=== PATIENT | female | born 1975 | race Caucasian/White ===

== ENCOUNTER 2022-01-31 11:00 | Inpatient (IN) | payer OTHER ==
[2022-01-27 18:34] VITALS: BMI 26.9
[2022-02-13] MEDS ORDERED: GENTAMICIN SO4 80 MG/2 ML VIAL ONE (07:11)
[2022-02-13] MEDS ORDERED: LIDOCAINE HCL 1% EPINEPHRINE 1:200,000 30 ML VIAL (PF) ONE (07:12)
[2022-02-13] MEDS ORDERED: THROMBIN (BOVINE) 5,000 UNIT VIAL TP ONE ×4 (07:12→10:00)
[2022-02-13] MEDS ORDERED: BACITRACIN 15 GM TUBE TOPICAL OINTMENT ONE (07:12)
[2022-02-13] MEDS ORDERED: MIDAZOLAM HCL 2 MG/2 ML SINGLE DOSE VIAL ONE (07:16)
[2022-02-13] MEDS ORDERED: KETAMINE HCL 500 MG/10 ML VIAL ONE (07:16)
[2022-02-13] MEDS ORDERED: PROPOFOL 40 ML ONE (07:17)
[2022-02-13] MEDS ORDERED: ROCURONIUM BROMIDE 50 MG/5 ML SYRINGE ONE ×2 (07:18→11:19)
[2022-02-13] MEDS ORDERED: BUPIVACAINE HCL/PF 0.5% (5MG/ML) 10 ML VIAL ONE (07:21)
[2022-02-13] MEDS ORDERED: DEXMEDETOMIDINE HCL 200 MCG/2 ML IVPB ONE (07:34)
[2022-02-13] MEDS ORDERED: ACETAMINOPHEN INJECTION 100 ML IVPB ONE (07:34)
[2022-02-13] MEDS ORDERED: GENTAMICIN SO4 80 MG/2 ML VIAL IVPB ONE ×3 (08:13→10:20)
[2022-02-13] MEDS ORDERED: HYDROGEN PEROXIDE 473 ML PO ONE ×3 (08:16→10:20)
[2022-02-13] MEDS ORDERED: VANCOMYCIN 1,000 MG VIAL (RESTRICTED TO ID ONLY) ONE (08:24)
[2022-02-13] MEDS ORDERED: ALBUMIN HUMAN 5% 250 ML IV SOLUTION IV ONE (08:30)
[2022-02-13] MEDS ORDERED: ALBUMIN HUMAN 5% 250 ML IV SOLUTION IV SCH (08:30)
[2022-02-13] MEDS ORDERED: VANCOMYCIN 1 GM in D5W (PRE-DOCKED) 1,000 MG/250 ML IVPB ONE ×2 (08:45→12:13)
[2022-02-13] MEDS ORDERED: ceFAZolin SODIUM 1 GM VIAL IVPB ONE ×2 (08:45→11:44)
[2022-02-13] MEDS ORDERED: BUPIVACAINE LIPOSOME/PF (EXPAREL) 266 MG/20 ML VIAL ONE (09:36)
[2022-02-13] MEDS ORDERED: BUPIVACAINE HCL/PF 0.5% (5MG/ML) 10 ML VIAL IJ ONE ×3 (09:48→12:15)
[2022-02-13] MEDS ORDERED: BUPIVACAINE LIPOSOME/PF (EXPAREL) 266 MG/20 ML VIAL NR ONE ×3 (09:48→12:15)
[2022-02-13] MEDS ORDERED: ONDANSETRON 4 MG/2 ML VIAL IVPUSH PRN ×2 (13:01→13:35)
[2022-02-13] MEDS ORDERED: diphenhydrAMINE HCL 25 MG CAPSULE (FP) PO PRN (13:01)
[2022-02-13] MEDS ORDERED: HEPARIN NA (PORCINE) 5,000 UNITS/ML 1ML VIAL SQ SCH (13:15)
[2022-02-13] MEDS: LACTATED RINGERS SOLUTION 1,000 ML/1,000 ML INFUS.BAG IV SCH (13:30)
[2022-02-13] MEDS: DOCUSATE SODIUM 100 MG CAPSULE (FP) PO SCH ×2 (14:03→22:37)
[2022-02-13] MEDS ORDERED: ACETAMINOPHEN 1000 MG/100 ML BAG IVPB SCH (16:30)
[2022-02-13] MEDS ORDERED: CEFAZOLIN 1 GM/D5W 1 GM/50 ML BAG IVPB SCH (17:00)
[2022-02-13] MEDS ORDERED: ceFAZolin SODIUM 1 GM VIAL ONE (17:48)
[2022-02-13] MEDS: ACETAMINOPHEN 1000 MG/100 ML BAG IVPB SCH (18:00)
[2022-02-13] MEDS: CEFAZOLIN 1 GM in DEXTROSE 5%-WATER - 50 ML IVPB SCH ×2 (18:28)
[2022-02-13] MEDS: oxyCODONE HCL 5 MG TABLET PO PRN (22:37)
[2022-02-13] MEDS: HEPARIN NA (PORCINE) 5,000 UNITS/ML 1ML VIAL SQ SCH (22:37)
[2022-02-14] MEDS: ACETAMINOPHEN 1000 MG/100 ML BAG IVPB SCH ×3 (04:14→19:14)
[2022-02-14] MEDS: oxyCODONE HCL 5 MG TABLET PO PRN ×4 (04:15→22:22)
[2022-02-14] MEDS: HEPARIN NA (PORCINE) 5,000 UNITS/ML 1ML VIAL SQ SCH ×3 (06:53→22:24)
[2022-02-14] MEDS: DOCUSATE SODIUM 100 MG CAPSULE (FP) PO SCH ×3 (06:53→22:24)
[2022-02-14 08:23] LABS: HEMATOCRIT 21.2 % (32.4-45.2); MCH 24.7 pg (25.7-33.7); MCHC 31.9 g/dl (32.0-36.0); MEAN CELL VOLUME 77.5 fl (80-96); MEAN PLT VOLUME 8.8 fl (7.5-11.1); PLATELET COUNT 233 10^3/uL (134-434); RBC 2.74 M/mm3 (3.60-5.2); RDW 16.2 % (11.6-15.6); WHITE BLOOD COUNT 6.2 K/mm3 (4.0-10.0)
[2022-02-14 08:42] LABS: HEMOGLOBIN 6.8 GM/dL (10.7-15.3)
[2022-02-14 09:02] LABS: CALCIUM 7.8 mg/dL (8.5-10.1)
[2022-02-14 09:06] LABS: CREATININE 0.6 mg/dL (0.55-1.3)
[2022-02-14] MEDS: ESCITALOPRAM OXALATE 10 MG TABLET PO SCH (09:49)
[2022-02-14] MEDS: FOLIC ACID 1 MG TABLET (FP) PO SCH (09:49)
[2022-02-14] MEDS: CHOLECALCIFEROL (VIT D3) 400 UNIT (10 MCG) TABLET PO SCH (09:49)
[2022-02-14] MEDS ORDERED: FERROUS SO4 325 MG TABLET (FP) PO SCH (10:00)
[2022-02-14] MEDS: CEFAZOLIN 1 GM in DEXTROSE 5%-WATER - 50 ML IVPB SCH (14:52)
[2022-02-14] MEDS: LACTATED RINGERS SOLUTION 1,000 ML/1,000 ML INFUS.BAG IV SCH (14:52)
[2022-02-14 17:02] LABS: HEMATOCRIT 22.7 % (32.4-45.2); HEMOGLOBIN 7.2 GM/dL (10.7-15.3); MCH 24.8 pg (25.7-33.7); MCHC 31.6 g/dl (32.0-36.0); MEAN CELL VOLUME 78.3 fl (80-96); MEAN PLT VOLUME 8.9 fl (7.5-11.1); PLATELET COUNT 241 10^3/uL (134-434); RDW 16.1 % (11.6-15.6); WHITE BLOOD COUNT 6.9 K/mm3 (4.0-10.0)
[2022-02-15] MEDS: oxyCODONE HCL 5 MG TABLET PO PRN ×4 (05:00→21:30)
[2022-02-15] MEDS: HEPARIN NA (PORCINE) 5,000 UNITS/ML 1ML VIAL SQ SCH ×3 (06:32→21:28)
[2022-02-15] MEDS: DOCUSATE SODIUM 100 MG CAPSULE (FP) PO SCH ×3 (06:32→21:28)
[2022-02-15 08:34] LABS: HEMATOCRIT 21.8 % (32.4-45.2); HEMOGLOBIN 7.3 GM/dL (10.7-15.3); MCH 25.8 pg (25.7-33.7); MCHC 33.5 g/dl (32.0-36.0); MEAN CELL VOLUME 77.2 fl (80-96); MEAN PLT VOLUME 9.1 fl (7.5-11.1); PLATELET COUNT 242 10^3/uL (134-434); RBC 2.83 M/mm3 (3.60-5.2); RDW 16.1 % (11.6-15.6); WHITE BLOOD COUNT 7.6 K/mm3 (4.0-10.0)
[2022-02-15] MEDS: CHOLECALCIFEROL (VIT D3) 400 UNIT (10 MCG) TABLET PO SCH (11:16)
[2022-02-15] MEDS: ESCITALOPRAM OXALATE 10 MG TABLET PO SCH (11:16)
[2022-02-15] MEDS: FOLIC ACID 1 MG TABLET (FP) PO SCH (11:16)
[2022-02-15] MEDS: FERROUS SO4 325 MG TABLET (FP) PO SCH (13:26)
[2022-02-15] MEDS ORDERED: ACETAMINOPHEN 325 MG TABLET (FP) PO PRN (14:12)
[2022-02-15] MEDS: LACTATED RINGERS SOLUTION 1,000 ML/1,000 ML INFUS.BAG IV SCH (16:04)
[2022-02-15] MEDS: PATIENT'S OWN MEDICATION (NON-FORMULARY) (Iron [Iron] 18 MG Tablet) PO SCH (16:04)
[2022-02-15] MEDS ORDERED: ALBUTEROL SO4 2.5/IPRATROPIUM 0.5 INH SOL 3 ML VIAL.NEB. NEB PRN (17:29)
[2022-02-15] MEDS: ACETAMINOPHEN 500 MG TABLET (FP) PO SCH (17:59)
[2022-02-15] MEDS ORDERED: diazePAM 5 MG TABLET PO PRN (22:00)
[2022-02-16] MEDS: ACETAMINOPHEN 500 MG TABLET (FP) PO SCH ×3 (00:14→17:29)
[2022-02-16] MEDS: DOCUSATE SODIUM 100 MG CAPSULE (FP) PO SCH ×3 (06:53→21:05)
[2022-02-16] MEDS: HEPARIN NA (PORCINE) 5,000 UNITS/ML 1ML VIAL SQ SCH ×3 (06:53→21:05)
[2022-02-16 08:12] LABS: BASO % 0.4 % (0-2.0); EOS % 2.5 % (0-4.5); HEMATOCRIT 23.3 % (32.4-45.2); HEMOGLOBIN 7.3 GM/dL (10.7-15.3); LYMPH % 28.4 % (8-40); MCH 24.5 pg (25.7-33.7); MCHC 31.5 g/dl (32.0-36.0); MEAN CELL VOLUME 77.7 fl (80-96); MEAN PLT VOLUME 9.1 fl (7.5-11.1); MONO % 9.3 % (3.8-10.2); NEUT % 59.4 % (42.8-82.8); PLATELET COUNT 259 10^3/uL (134-434); RDW 16.4 % (11.6-15.6)
[2022-02-16 08:25] LABS: BLOOD UREA NITROGEN 5.4 mg/dL (7-18)
[2022-02-16 08:29] LABS: CALCIUM 8.4 mg/dL (8.5-10.1)
[2022-02-16 08:30] LABS: ALBUMIN 2.6 g/dl (3.4-5.0)
[2022-02-16 08:33] LABS: CREATININE 0.6 mg/dL (0.55-1.3)
[2022-02-16 08:34] LABS: BILIRUBIN,TOTAL 0.4 mg/dL (0.2-1); TOT PROT 5.7 g/dl (6.4-8.2)
[2022-02-16] MEDS ORDERED: POLYETHYLENE GLYCOL (HEALTHYLAX) 3350 17 GM PACKET PO ONE (09:15)
[2022-02-16] MEDS: CHOLECALCIFEROL (VIT D3) 400 UNIT (10 MCG) TABLET PO SCH (10:24)
[2022-02-16] MEDS: ESCITALOPRAM OXALATE 10 MG TABLET PO SCH (10:24)
[2022-02-16] MEDS: FERROUS SO4 325 MG TABLET (FP) PO SCH (10:24)
[2022-02-16] MEDS: FOLIC ACID 1 MG TABLET (FP) PO SCH (10:24)
[2022-02-16] MEDS: oxyCODONE HCL 5 MG TABLET PO PRN ×2 (10:29→21:06)
[2022-02-16] MEDS ORDERED: ALBUTEROL SO4 2.5/IPRATROPIUM 0.5 INH SOL 3 ML VIAL.NEB. NEB PRN (20:24)
[2022-02-16] MEDS ORDERED: oxyCODONE HCL 5 MG TABLET PO PRN (20:24)
[2022-02-16] MEDS ORDERED: ONDANSETRON 4 MG/2 ML VIAL IVPUSH PRN (20:24)
[2022-02-16] MEDS ORDERED: diphenhydrAMINE HCL 25 MG CAPSULE (FP) PO PRN (20:24)
[2022-02-16] MEDS: POLYETHYLENE GLYCOL (HEALTHYLAX) 3350 17 GM PACKET PO SCH (21:05)
[2022-02-16] MEDS ORDERED: POLYETHYLENE GLYCOL (HEALTHYLAX) 3350 17 GM PACKET PO SCH (22:00)
[2022-02-17] MEDS: DOCUSATE SODIUM 100 MG CAPSULE (FP) PO SCH ×3 (05:49→21:24)
[2022-02-17] MEDS: HEPARIN NA (PORCINE) 5,000 UNITS/ML 1ML VIAL SQ SCH ×3 (05:49→21:23)
[2022-02-17] MEDS: CHOLECALCIFEROL (VIT D3) 400 UNIT (10 MCG) TABLET PO SCH (09:24)
[2022-02-17] MEDS: FOLIC ACID 1 MG TABLET (FP) PO SCH (09:24)
[2022-02-17] MEDS: oxyCODONE HCL 5 MG TABLET PO PRN ×2 (09:25→19:40)
[2022-02-17] MEDS: FERROUS SO4 325 MG TABLET (FP) PO SCH (09:25)
[2022-02-17] MEDS: POLYETHYLENE GLYCOL (HEALTHYLAX) 3350 17 GM PACKET PO SCH ×2 (09:25→21:23)
[2022-02-17] MEDS: ESCITALOPRAM OXALATE 10 MG TABLET PO SCH (09:25)
[2022-02-17 10:22] LABS: BASO % 0.6 % (0-2.0); HEMATOCRIT 24.1 % (32.4-45.2); HEMOGLOBIN 7.6 GM/dL (10.7-15.3); LYMPH % 23.6 % (8-40); MCH 24.7 pg (25.7-33.7); MCHC 31.5 g/dl (32.0-36.0); MEAN CELL VOLUME 78.4 fl (80-96); MEAN PLT VOLUME 8.8 fl (7.5-11.1); MONO % 4.9 % (3.8-10.2); NEUT % 66.9 % (42.8-82.8); PLATELET COUNT 323 10^3/uL (134-434); RBC 3.07 M/mm3 (3.60-5.2); RDW 16.7 % (11.6-15.6)
[2022-02-17 10:47] LABS: ALBUMIN 2.7 g/dl (3.4-5.0); CALCIUM 8.6 mg/dL (8.5-10.1)
[2022-02-17 10:48] LABS: BLOOD UREA NITROGEN 7.5 mg/dL (7-18)
[2022-02-17 10:51] LABS: CREATININE 0.7 mg/dL (0.55-1.3)
[2022-02-17 10:53] LABS: BILIRUBIN,TOTAL 0.4 mg/dL (0.2-1); TOT PROT 6.1 g/dl (6.4-8.2)
[2022-02-17] MEDS ORDERED: BISACODYL 10 MG SUPP.RECT PR ONE (12:48)
[2022-02-18] MEDS: oxyCODONE HCL 5 MG TABLET PO PRN ×4 (04:23→21:35)
[2022-02-18] MEDS: HEPARIN NA (PORCINE) 5,000 UNITS/ML 1ML VIAL SQ SCH ×3 (05:15→21:31)
[2022-02-18] MEDS: DOCUSATE SODIUM 100 MG CAPSULE (FP) PO SCH ×3 (05:16→21:29)
[2022-02-18 09:01] LABS: BASO % 0.5 % (0-2.0); EOS % 2.9 % (0-4.5); HEMATOCRIT 23.5 % (32.4-45.2); HEMOGLOBIN 7.5 GM/dL (10.7-15.3); LYMPH % 20.9 % (8-40); MCH 24.7 pg (25.7-33.7); MEAN CELL VOLUME 77.3 fl (80-96); MEAN PLT VOLUME 8.5 fl (7.5-11.1); MONO % 8.6 % (3.8-10.2); NEUT % 67.1 % (42.8-82.8); PLATELET COUNT 346 10^3/uL (134-434); RBC 3.04 M/mm3 (3.60-5.2); RDW 16.1 % (11.6-15.6); WHITE BLOOD COUNT 8.1 K/mm3 (4.0-10.0)
[2022-02-18] MEDS: ESCITALOPRAM OXALATE 10 MG TABLET PO SCH (09:12)
[2022-02-18] MEDS: FERROUS SO4 325 MG TABLET (FP) PO SCH (09:12)
[2022-02-18] MEDS: CHOLECALCIFEROL (VIT D3) 400 UNIT (10 MCG) TABLET PO SCH (09:12)
[2022-02-18] MEDS: POLYETHYLENE GLYCOL (HEALTHYLAX) 3350 17 GM PACKET PO SCH ×2 (09:12→21:30)
[2022-02-18] MEDS: FOLIC ACID 1 MG TABLET (FP) PO SCH (09:12)
[2022-02-18 09:58] LABS: CALCIUM 8.5 mg/dL (8.5-10.1)
[2022-02-18 09:59] LABS: ALBUMIN 2.7 g/dl (3.4-5.0); BLOOD UREA NITROGEN 7.9 mg/dL (7-18)
[2022-02-18 10:01] LABS: CREATININE 0.6 mg/dL (0.55-1.3)
[2022-02-18 10:03] LABS: BILIRUBIN,TOTAL 0.4 mg/dL (0.2-1)
[2022-02-18] MEDS: diazePAM 5 MG TABLET PO PRN (21:29)
[2022-02-19] MEDS: DOCUSATE SODIUM 100 MG CAPSULE (FP) PO SCH ×3 (05:55→21:56)
[2022-02-19] MEDS: HEPARIN NA (PORCINE) 5,000 UNITS/ML 1ML VIAL SQ SCH ×3 (05:55→21:56)
[2022-02-19] MEDS: oxyCODONE HCL 5 MG TABLET PO PRN ×2 (10:08→21:56)
[2022-02-19] MEDS: ESCITALOPRAM OXALATE 10 MG TABLET PO SCH (10:09)
[2022-02-19] MEDS: POLYETHYLENE GLYCOL (HEALTHYLAX) 3350 17 GM PACKET PO SCH ×2 (10:09→21:56)
[2022-02-19] MEDS: CHOLECALCIFEROL (VIT D3) 400 UNIT (10 MCG) TABLET PO SCH (10:10)
[2022-02-19] MEDS: FOLIC ACID 1 MG TABLET (FP) PO SCH (10:10)
[2022-02-19] MEDS: FERROUS SO4 325 MG TABLET (FP) PO SCH (10:10)
[2022-02-19] MEDS: diazePAM 5 MG TABLET PO PRN (21:57)
[2022-02-20] MEDS: DOCUSATE SODIUM 100 MG CAPSULE (FP) PO SCH ×3 (06:09→21:28)
[2022-02-20] MEDS: oxyCODONE HCL 5 MG TABLET PO PRN ×2 (06:10→21:27)
[2022-02-20] MEDS: HEPARIN NA (PORCINE) 5,000 UNITS/ML 1ML VIAL SQ SCH ×3 (06:11→21:28)
[2022-02-20] MEDS: ESCITALOPRAM OXALATE 10 MG TABLET PO SCH (09:07)
[2022-02-20] MEDS: POLYETHYLENE GLYCOL (HEALTHYLAX) 3350 17 GM PACKET PO SCH ×2 (09:07→21:28)
[2022-02-20] MEDS: CHOLECALCIFEROL (VIT D3) 400 UNIT (10 MCG) TABLET PO SCH (09:07)
[2022-02-20] MEDS: FERROUS SO4 325 MG TABLET (FP) PO SCH (09:07)
[2022-02-20] MEDS: FOLIC ACID 1 MG TABLET (FP) PO SCH (09:07)
[2022-02-21] MEDS: HEPARIN NA (PORCINE) 5,000 UNITS/ML 1ML VIAL SQ SCH ×2 (05:56→14:04)
[2022-02-21] MEDS: DOCUSATE SODIUM 100 MG CAPSULE (FP) PO SCH ×2 (06:41→14:04)
[2022-02-21] MEDS: oxyCODONE HCL 5 MG TABLET PO PRN (06:45)
[2022-02-21 09:30] VITALS: RESP 20
[2022-02-21] MEDS: CHOLECALCIFEROL (VIT D3) 400 UNIT (10 MCG) TABLET PO SCH (09:30)
[2022-02-21] MEDS: ESCITALOPRAM OXALATE 10 MG TABLET PO SCH (09:30)
[2022-02-21] MEDS: FERROUS SO4 325 MG TABLET (FP) PO SCH (09:30)
[2022-02-21] MEDS: POLYETHYLENE GLYCOL (HEALTHYLAX) 3350 17 GM PACKET PO SCH (09:30)
[2022-02-21] MEDS: FOLIC ACID 1 MG TABLET (FP) PO SCH (09:30)
[2022-02-21 14:43] VITALS: BP 105/62; PULSE 81; TEMP 98.9
== END 2022-02-21 19:38 | disposition home or self-care (01) | DRG 304 ==
LOC: J2C 02-13 04:01 → J4W 02-13 21:12 → J6S 02-16 19:33
PROVIDERS: ADMIT Neurological Surgery; ATTEND Nurse Practitioner Acute Care
PROC: 0SG1071 Fusion of 2 or more Lumbar Vertebral Joints with Autologous Tissue Substitute, Posterior Approach, Posterior Column, Open Approach (ICD-10-PCS; 2022-02-13)
PROC: 0SG30AJ Fusion of Lumbosacral Joint with Interbody Fusion Device, Posterior Approach, Anterior Column, Open Approach (ICD-10-PCS; 2022-02-13)
PROC: 0SG3071 Fusion of Lumbosacral Joint with Autologous Tissue Substitute, Posterior Approach, Posterior Column, Open Approach (ICD-10-PCS; 2022-02-13)
PROC: 0ST20ZZ Resection of Lumbar Vertebral Disc, Open Approach (ICD-10-PCS; 2022-02-13)
PROC: 0ST40ZZ Resection of Lumbosacral Disc, Open Approach (ICD-10-PCS; 2022-02-13)
PROC: 4A11X4G Monitoring of Peripheral Nervous Electrical Activity, Intraoperative, External Approach (ICD-10-PCS; 2022-02-13)
PROC: 0SG10AJ Fusion of 2 or more Lumbar Vertebral Joints with Interbody Fusion Device, Posterior Approach, Anterior Column, Open Approach (ICD-10-PCS; principal; 2022-02-13 08:00)
DX: M51.36 Other intervertebral disc degeneration, lumbar region (principal); M47.816 Spondylosis without myelopathy or radiculopathy, lumbar region; M47.817 Spondylosis without myelopathy or radiculopathy, lumbosacral region; J45.909 Unspecified asthma, uncomplicated; D64.9 Anemia, unspecified; Z98.84 Bariatric surgery status
CPT/HCPCS: 36415; 72131-TC; 76000-TC-FY; 80048; 80053; 81025; 82728; 82962; 83540; 83550; 85025; 85027; 86850; 86900; 86901; 86922; 94760; 97116-GP; 97162-GP; C1713; C1889; C9803-CS; J1644; U0003; U0005